=== PATIENT | male | born 1970 | race Caucasian/White ===

== ENCOUNTER 2017-02-19 09:27 | Emergency (ER) | payer OTHER ==
[2017-02-19 09:42] VITALS: RESP 14
[2017-02-19] MEDS ORDERED: NS 1,000 ML IV ONE (10:26)
[2017-02-19 10:48] LABS: % IMMATURE GRANULYOCYTES 0.3 % (0.0-1.1); ABSOLUTE IMMATURE GRANULOCYTES 0.02 10^3/uL (0.00-0.10); ADD DIFF? NO; ADD MORPH? NO; ADD SCAN? NO; ATYPICAL LYMPHOCYTE FLAG 0 (0-99); FRAGMENT RBC FLAG 0 (0-99); HEMOGLOBIN 15.8 g/dL (13.7-17.5); LEFT SHIFT FLG 0 (0-99); LIPEMIA HEMOLYSIS FLAG 90 (0-99); MEAN CELL HEMOGLOBIN CONCENTR. 34.3 g/dL (32.4-36.7); MEAN CELL VOLUME 93.1 fL (81.5-99.8); PLATELET CLUMPS FLAG 0 (0-99); PLATELET COUNT 268 10^3/uL (150-400); RED BLOOD CELL COUNT 4.94 10^6/uL (4.40-6.38); RED CELL DISTRIBUTION WIDTH 11.7 % (11.5-15.2)
[2017-02-19 11:16] LABS: ANION GAP 10 mEq/L (8-16); CALCIUM 9.7 mg/dL (8.5-10.4); CARBON DIOXIDE 22 mEq/l (22-31); CHLORIDE 107 mEq/L (97-110); CREATININE 0.9 mg/dL (0.7-1.3); GLOMERULAR FILTRATION RATE > 60; GLUCOSE 105 mg/dL (70-100); POTASSIUM 4.2 mEq/L (3.5-5.2); SODIUM 139 mEq/L (134-144)
[2017-02-19] MEDS ORDERED: IOPAMIDOL (ISOVUE-300) 100 ML BTL IV ONE (11:19)
[2017-02-19] MEDS ORDERED: ONDANSETRON DISINTEGRATING 4 MG TAB ONE (12:47)
[2017-02-19] MEDS ORDERED: HYDROCODONE/APAP 5/325 TAB ONE (12:47)
--- NOTE | 2017-02-19 12:48 | EDPHY ---
H & P Stated Complaint: Pain, swelling in nose HPI/ROS: Chief complaint: Facial cellulitis History of present illness: This is a 46-year-old male who presents to the emergency department for evaluation treatment of a facial cellulitis. Patient states he woke up this last Sunday, approximately 3 days ago with pain, redness and swelling across his nose. He went to an urgent care and was diagnosed with cellulitis and started on doxycycline. He has taken approximately 6 doses of the doxycycline since then but symptoms persist. He reports persistent pain, redness and swelling. He is now getting pain behind his eyes. He denies specific precipitating factors. He denies alleviating factors. He denies other associated signs and symptoms including no history of trauma, no fevers, no other lesions noted. Review of systems: A 10 point review of systems was obtained and other than described above was negative - Personal History Current Tetanus Diphtheria and Acellular Pertussis (TDAP): Yes - Medical/Surgical History Hx Asthma: No Hx Chronic Respiratory Disease: No Hx Diabetes: No Hx Cardiac Disease: No Hx Renal Disease: No Hx Cirrhosis: No Hx Alcoholism: Yes Hx HIV/AIDS: No Hx Splenectomy or Spleen Trauma: No Other PMH: HTN, appendectomy - Social History Smoking Status: Former smoker - Physical Exam Exam: General Appearance: Alert and no distress. Eyes: Pupils equal and round no injection. ENT: Tympanic membranes, external auditory canals, external ears and surrounding soft tissue including over the mastoids are unremarkable. Nasopharynx is not injected. There is no rhinorrhea. Oropharynx is not injected. There is no edema. There is no exudate. There is no asymmetry. The uvula is midline. No elevation of the tongue. There is no hoarseness, no drooling, no trismus, no stridor. Respiratory: Chest is nontender, lungs are clear to auscultation. Cardiac: regular rate and rhythm. Gastrointestinal: Abdomen is soft and nontender, no masses, bowel sounds normal. Musculoskeletal: Neck is supple and nontender. Extremities have full range of motion and are nontender. Skin: There is mild erythema and edema across the bridge of the nose down on to the medial upper cheeks. It is tender to palpation. It is warm to palpation. No induration or fluctuance appreciated. Constitutional: Initial Vital Signs Temperature (C) 36.7 C 02/19/17 09:36 Heart Rate 78 02/19/17 09:36 Respiratory Rate 14 02/19/17 09:36 Blood Pressure 153/103 H 02/19/17 09:36 O2 Sat (%) 95 02/19/17 09:36 O2 Delivery Mode Room Air Allergies/Adverse Reactions: Sulfa (Sulfonamide Antibiotics) Allergy (Verified 02/19/17 09:42) Home Medications: Medication Instructions Recorded Amoxicillin/Clavulanate Pot 875 mg PO BID #14 tab 02/19/17 [Augmentin 875 MG TAB (*)] Doxycycline Hyclate 02/19/17 Hydrocodone/APAP 5/325 [[place] 1 tab PO Q4 #10 tab 02/19/17 5/325 (*)] Losartan Potassium 02/19/17 Medical Decision Making - Diagnostics Imaging: Imaging Impressions Face CT 02/19/17 10:26 Impression: Negative for abscess. I telephoned results to Aristides Albright PA-C, at 1213 hours. ED Course/Re-evaluation: Patient discussed with my secondary supervising physician Dr. Tyler Elkins. Patient presents to the emergency department for what he believes is a persistent facial cellulitis. There is concern for cellulitis on physical exam. Given persistence of symptoms a CT scan is pursued to ensure no underlying issue such as abscess formation. This is negative. I have consulted with Dr. Gigi Garcia of Infectious Disease. He recommends in addition to doxycycline we add an antibiotic to have better coverage against group a strep. He recommends Rocephin IV and Augmentin. Patient is given 1 g of Rocephin and sent home on Augmentin. He is asked to follow up with a primary care doctor or infectious disease for continued evaluation and care. Home care is discussed. Strict return precautions are given. Patient voiced understanding and agreement with plan. Differential Diagnosis: Included but not limited to cellulitis, abscess, allergic reaction - Data Points Laboratory Results: Laboratory Results 02/19/17 10:40 02/19/17 10:40 02/19/17 02/19/17 10:40 10:40 WBC 7.68 10^3/uL 10^3/uL (3.80-9.50) RBC 4.94 10^6/uL 10^6/uL (4.40-6.38) Hgb 15.8 g/dL g/dL (13.7-17.5) Hct 46.0 % % (40.0-51.0) MCV 93.1 fL fL (81.5-99.8) MCH 32.0 pg pg (27.9-34.1) MCHC 34.3 g/dL g/dL (32.4-36.7) RDW 11.7 % % (11.5-15.2) Plt Count 268 10^3/uL 10^3/uL (150-400) MPV 11.0 fL fL (8.7-11.7) Neut % (Auto) 64.2 % % (39.3-74.2) Lymph % (Auto) 22.5 % % (15.0-45.0) Harmon % (Auto) 8.7 % % (4.5-13.0) Eos % (Auto) 2.9 % % (0.6-7.6) Baso % (Auto) 1.4 % % (0.3-1.7) Nucleat RBC Rel Count 0.0 % % (0.0-0.2) Absolute Neuts (auto) 4.93 10^3/uL 10^3/uL (1.70-6.50) Absolute Lymphs (auto) 1.73 10^3/uL 10^3/uL (1.00-3.00) Absolute Monos (auto) 0.67 10^3/uL 10^3/uL (0.30-0.80) Absolute Eos (auto) 0.22 10^3/uL 10^3/uL (0.03-0.40) Absolute Basos (auto) 0.11 10^3/uL H 10^3/uL (0.02-0.10) Absolute Nucleated RBC 0.00 10^3/uL 10^3/uL (0-0.01) Immature Gran % 0.3 % % (0.0-1.1) Immature Gran # 0.02 10^3/uL 10^3/uL (0.00-0.10) Sodium 139 mEq/L mEq/L (134-144) Potassium 4.2 mEq/L mEq/L (3.5-5.2) Chloride 107 mEq/L mEq/L (97-110) Carbon Dioxide 22 mEq/l mEq/l (22-31) Anion Gap 10 mEq/L mEq/L (8-16) BUN 9 mg/dL mg/dL (7-23) Creatinine 0.9 mg/dL mg/dL (0.7-1.3) Estimated GFR > 60 Glucose 105 mg/dL H mg/dL (70-100) Calcium 9.7 mg/dL mg/dL (8.5-10.4) Medications Given: Discontinued Medications Hydrocodone Bitart/Acetaminophen ([place] 5/325) 1 tab PO EDNOW ONE Stop: 02/19/17 12:56 Last Admin: 02/19/17 13:01 Dose: 1 tab Sodium Chloride (Ns) 1,000 mls @ 0 mls/hr IV ONCE ONE PRN Reason: Wide Open Stop: 02/19/17 10:27 Last Admin: 02/19/17 10:41 Dose: 1,000 mls Ceftriaxone Sodium/Dextrose (Rocephin 1 Gm (Premix)) 50 mls @ 100 mls/hr IV EDNOW ONE PRN Reason: Protocol Stop: 02/19/17 12:53 Last Admin: 02/19/17 12:44 Dose: 50 mls Ondansetron HCl (Zofran Odt) 4 mg PO EDNOW ONE Stop: 02/19/17 12:56 Last Admin: 02/19/17 13:01 Dose: 4 mg Departure - Departure Disposition: Home, Routine, Self-Care Clinical Impression: Cellulitis of face Condition: Good Instructions: Cellulitis (ED) Additional Instructions: Follow-up with her primary care doctor or an infectious disease doctor for continued evaluation and care Take antibiotics as prescribed until finished If symptoms worsen or new symptoms develop return to the emergency room for recheck Referrals: ALEKS HICKS [Primary Care Provider] - As per Instructions Gigi Garcia MD [Medical Doctor] - As per Instructions Prescriptions: Amoxicillin/Clavulanate Pot [Augmentin 875 MG TAB (*)] 875 mg PO BID #14 tab Hydrocodone/APAP 5/325 [[place] 5/325 (*)] 1 tab PO Q4 #10 tab
[2017-02-19] MEDS ORDERED: ONDANSETRON DISINTEGRATING 4 MG TAB PO ONE (12:55)
[2017-02-19] MEDS ORDERED: HYDROCODONE/APAP 5/325 TAB PO ONE (12:55)
[2017-02-19 13:35] VITALS: BP 155/112; PULSE 82; TEMP 98.8; O2SAT 93
== END 2017-02-19 13:22 | disposition home or self-care (01) ==
DX: L03.211 Cellulitis of face (principal); I10 Essential (primary) hypertension; Z87.891 Personal history of nicotine dependence
CPT/HCPCS: 96365; J0696; Q9967